=== PATIENT | female | born 1960 | race Hispanic/Latino ===

== ENCOUNTER 2021-01-26 17:10 | Emergency (ER) | payer SELFPAY ==
[2021-01-26] MEDS ORDERED: NA CHLORIDE 0.9% 1,000 ML ONE (19:58)
[2021-01-26] MEDS ORDERED: ASPIRIN 81 MG CHEWABLE TABLET ONE (20:14)
--- NOTE | 2021-01-26 20:22 | RAD REPORT ---
EXAM DESCRIPTION: RAD - Chest Single View - 01/26/2021 8:07 pm CLINICAL HISTORY: COUGH, chest pain COMPARISON: None TECHNIQUE: AP portable chest image was obtained 01/26/2021 8:07 pm . FINDINGS: Lung volumes are low. Mild cardiomegaly is present accentuated by shallow inspiration. Columba tral vasculature is mildly prominent. Peripheral interstitial pattern is not clearly edematous. No ma ss or consolidations seen. Trachea is midline. No measurable pleural effusion and no pneumothorax. No acute bony abnormality seen. No acute aortic findings suspected. IMPRESSION: No peripheral mass or consolidation. Mild failure or volume overload findings are present.
[2021-01-26 20:30] LABS: Absolute Lymphocytes (CBC) 3.8 K/uL (0.7-4.9); Basophils % 0.9 % (0-1.3); Hematocrit 42.4 % (36.0-45.0); Lymphocytes % 45.9 % (15.3-44.8); MPV 9.4 fL (7.6-11.3); RBC Red Blood Cell Count 5.36 M/uL (3.86-4.86)
[2021-01-26 20:31] LABS: Protime INR 0.99
[2021-01-26 20:46] LABS: ALT/SGPT 27 U/L (12-78); AST/SGOT 16 U/L (15-37); Albumin 4.1 g/dL (3.4-5.0); Alkaline Phosphatase 83 U/L (45-117); BUN Blood Urea Nitrogen 12 mg/dL (7-18); Bicarbonate 29 mmol/L (21-32); Bilirubin Direct < 0.1 mg/dL (0-0.2); Bilirubin Total 0.4 mg/dL (0.2-1.0); Glucose Level 93 mg/dL (74-106); Magnesium 2.3 mg/dL (1.8-2.4); NT PRO-BNP 42 pg/mL (<125); Potassium 3.8 mmol/L (3.5-5.1); Protein, Total 7.7 g/dL (6.4-8.2); Sodium Level 142 mmol/L (136-145); Troponin (Emerg Dept Use Only) < 0.02 ng/mL (0.0-0.045)
--- NOTE | 2021-01-26 21:00 | ER ---
Nurse's Notes [facility] Name: Vanessa Guerra Age: 60 yrs Sex: Female : 1960 Arrival Date: 01/26/2021 Time: 17:14 Bed 24 Private MD: Diagnosis: Palpitations;Dizziness and giddiness Presentation: 01/26 17:36 Ebola Screen: Patient negative for fever greater than or equal to 101.5 degrees ca1 Fahrenheit, and additional compatible Ebola Virus Disease symptoms Patient denies exposure to infectious person. Patient denies travel to an Ebola-affected area in the 21 days before illness onset. No symptoms or risks identified at this time. Initial Sepsis Screen: Does the patient meet any 2 criteria? No. Patient's initial sepsis screen is negative. Does the patient have a suspected source of infection? No. Patient's initial sepsis screen is negative. Risk Assessment: Do you want to hurt yourself or someone else? Patient reports no desire to harm self or others. Onset of symptoms was January 26, 2021. 17:36 Acuity: CLINT 3 ca1 17:36 Method Of Arrival: Ambulatory ca1 17:36 Chief complaint: Patient states: I feel like was my beating slow and every time I move ca1 and get up I feel dizzy, been about 5 days. Reports SOB and a little chest pain. Coronavirus screen: Client denies travel out of the [place] in the last 14 days. shortness of breath, Client presents with at least one sign or symptom that may indicate coronavirus-19. Standard/surgical mask placed on the client. Provider contacted for isolation considerations. 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 Historical: - Allergies: 17:42 No Known Allergies; ca1 - Home Meds: 17:42 None [Active]; ca1 - PMHx: 17:42 None; ca1 - PSHx: 17:42 None; ca1 - Immunization history:: Flu vaccine is not up to date. - Social history:: Smoking status: Patient denies any tobacco usage or history of. - Family history:: not pertinent. Screenin:30 Abuse screen: Denies threats or abuse. Nutritional screening: No deficits noted. jb4 Tuberculosis screening: No symptoms or risk factors identified. Fall Risk None identified. Assessment: 19:30 General: Appears in no apparent distress. comfortable, Behavior is calm, cooperative, jb4 appropriate for age. Pain: Denies pain. Neuro: Level of Consciousness is awake, alert, obeys commands, Oriented to person, place, time, situation. Cardiovascular: Patient's skin is warm and dry. Rhythm is sinus rhythm. Respiratory: Airway is patent Respiratory effort is even, unlabored, Respiratory pattern is regular, symmetrical. GI: No signs and/or symptoms were reported involving the gastrointestinal system. : No signs and/or symptoms were reported regarding the genitourinary system. EENT: No signs and/or symptoms were reported regarding the EENT system. Derm: Skin is intact, Skin is pink, warm \T\ dry. Musculoskeletal: Circulation, motion, and sensation intact. Range of motion: intact in all extremities. 20:30 Reassessment: Patient appears in no apparent distress at this time. Patient and/or jb4 family updated on plan of care and expected duration. Pain level reassessed. Patient is alert, oriented x 3, equal unlabored respirations, skin warm/dry/pink. 21:30 Reassessment: Patient appears in no apparent distress at this time. Patient and/or jb4 family updated on plan of care and expected duration. Pain level reassessed. Patient is alert, oriented x 3, equal unlabored respirations, skin warm/dry/pink. Vital Signs: 17:36 BP 141 / 79; Pulse 66; Resp 18 S; Temp 97.7(TE); Pulse Ox 98% on R/A; Weight 85.73 kg ca1 (R); Height 5 ft. 0 in. (152.40 cm) (R); Pain 0/10; 20:30 BP 142 / 87; Pulse 59; Resp 16; Pulse Ox 100% on R/A; jb4 21:30 BP 159 / 99; Pulse 58; Resp 16; Pulse Ox 100% on R/A; jb4 17:36 Body Mass Index 36.91 (85.73 kg, 152.40 cm) ca1 ED Course: 17:14 Patient arrived in ED. ds1 17:38 Triage completed. ca1 17:42 Arm band placed on right wrist. ca1 19:19 Richard Roque MD is Attending Physician. shanell 19:30 José Miguel Olvia RN is Primary Nurse. jb4 19:30 Patient has correct armband on for positive identification. hall monitor on. Pulse jb4 ox on. NIBP on. 19:30 Patient maintains SpO2 saturation greater than 95% on room air. jb4 20:18 XRAY Chest (1 view) In Process Unspecified. EDMS 20:59 Gunner Ceja MD is Referral Physician. [facility] 21:45 No provider procedures requiring assistance completed. IV discontinued, intact, jb4 bleeding controlled, No redness/swelling at site. Pressure dressing applied. Administered Medications: Discontinued: NS 0.9% 1000 ml IV at 125 ml/hr continuous 20:00 Drug: NS 0.9% 1000 ml Route: IV; Rate: 125 ml/hr; Site: right antecubital; jb4 21:30 Follow up: Response: No adverse reaction; IV Status: Order to discontinue infusion jb4 20:00 Drug: Aspirin Chewable Tablet 324 mg Route: PO; jb4 20:30 Follow up: Response: No adverse reaction jb4 21:30 Not Given (Hemodynamic Parameters): ToPROL XL 25 mg PO once jb4 Outcome: 20:59 Discharge ordered by . shanell 21:45 Discharged to home ambulatory. jb4 21:45 Condition: stable 21:45 Discharge instructions given to patient, Instructed on discharge instructions, follow up and referral plans. medication usage, Demonstrated understanding of instructions, follow-up care, medications, Prescriptions given X 1. 21:59 Patient left the ED. jb4 Signatures: Dispatcher [employer] EDKY Richard Roque MD MD cha Sanford, Demi ds1 José Miguel Oliva RN RN jb4 Myrna Redman RN RN ca1
--- NOTE | 2021-01-26 21:00 | EDPHYS ---
Physician Documentation [facility] Name: Vanessa Guerra Age: 60 yrs Sex: Female : 1960 Arrival Date: 01/26/2021 Time: 17:14 Bed 24 Private MD: ED Physician Richard Roque HPI: 01/26 20:01 This 60 yrs old Female presents to ER via Ambulatory with complaints of shanell Dizziness, Irregular Pulse. 20:01 The patient presents with dizziness, generalized weakness. Onset: The symptoms/episode shanell began/occurred 2 day(s) ago. Context: occurred at an unknown location. 20:02 The patient presents with a history of irregular heart beat. Context: The symptoms shanell occur without known cause. Duration: The patient or guardian reports multiple episodes, with no pattern. Modifying factors: The symptoms are aggravated by nothing. The symptoms are alleviated by nothing. Modifying factors: The symptoms are alleviated by nothing, the symptoms are aggravated by nothing. Severity of symptoms: At their worst the symptoms were mild in the emergency department the symptoms are unchanged. Historical: - Allergies: 17:42 No Known Allergies; ca1 - Home Meds: 17:42 None [Active]; ca1 - PMHx: 17:42 None; ca1 - PSHx: 17:42 None; ca1 - Immunization history:: Flu vaccine is not up to date. - Social history:: Smoking status: Patient denies any tobacco usage or history of. - Family history:: not pertinent. ROS: 20:02 Constitutional: Negative for fever, chills, and weight loss, Eyes: Negative for injury, shanell pain, redness, and discharge, ENT: Negative for injury, pain, and discharge, Neck: Negative for injury, pain, and swelling, Respiratory: Negative for shortness of breath, cough, wheezing, and pleuritic chest pain, Abdomen/GI: Negative for abdominal pain, nausea, vomiting, diarrhea, and constipation, Back: Negative for injury and pain, : Negative for injury, bleeding, discharge, and swelling, MS/Extremity: Negative for injury and deformity, Skin: Negative for injury, rash, and discoloration, Psych: Negative for depression, anxiety, suicide ideation, homicidal ideation, and hallucinations, Allergy/Immunology: Negative for hives, rash, and allergies, Endocrine: Negative for neck swelling, polydipsia, polyuria, polyphagia, and marked weight changes, Hematologic/Lymphatic: Negative for swollen nodes, abnormal bleeding, and unusual bruising. 20:02 Cardiovascular: Positive for palpitations. Exam: 20:02 Constitutional: This is a well developed, well nourished patient who is awake, alert, shanell and in no acute distress. Head/Face: Normocephalic, atraumatic. Eyes: Pupils equal round and reactive to light, extra-ocular motions intact. Lids and lashes normal. Conjunctiva and sclera are non-icteric and not injected. Cornea within normal limits. Periorbital areas with no swelling, redness, or edema. ENT: Nares patent. No nasal discharge, no septal abnormalities noted. Tympanic membranes are normal and external auditory canals are clear. Oropharynx with no redness, swelling, or masses, exudates, or evidence of obstruction, uvula midline. Mucous membranes moist. Neck: Trachea midline, no thyromegaly or masses palpated, and no cervical lymphadenopathy. Supple, full range of motion without nuchal rigidity, or vertebral point tenderness. No Meningismus. Chest/axilla: Normal chest wall appearance and motion. Nontender with no deformity. No lesions are appreciated. Cardiovascular: Regular rate and rhythm with a normal S1 and S2. No gallops, murmurs, or rubs. Normal PMI, no JVD. No pulse deficits. Respiratory: Lungs have equal breath sounds bilaterally, clear to auscultation and percussion. No rales, rhonchi or wheezes noted. No increased work of breathing, no retractions or nasal flaring. Abdomen/GI: Soft, non-tender, with normal bowel sounds. No distension or tympany. No guarding or rebound. No evidence of tenderness throughout. Back: No spinal tenderness. No costovertebral tenderness. Full range of motion. Skin: Warm, dry with normal turgor. Normal color with no rashes, no lesions, and no evidence of cellulitis. MS/ Extremity: Pulses equal, no cyanosis. Neurovascular intact. Full, normal range of motion. Neuro: Awake and alert, GCS 15, oriented to person, place, time, and situation. Cranial nerves II-XII grossly intact. Motor strength 5/5 in all extremities. Sensory grossly intact. Cerebellar exam normal. Normal gait. Psych: Awake, alert, with orientation to person, place and time. Behavior, mood, and affect are within normal limits. 20:02 Musculoskeletal/extremity: DVT Exam: No signs of deep vein thrombosis. no pain, no swelling, no tenderness, negative Homans' sign noted on exam, no appreciated bluish discoloration, no erythema, no increased warmth. 20:42 ECG was reviewed by the Attending Physician. shanell Vital Signs: 17:36 BP 141 / 79; Pulse 66; Resp 18 S; Temp 97.7(TE); Pulse Ox 98% on R/A; Weight 85.73 kg ca1 (R); Height 5 ft. 0 in. (152.40 cm) (R); Pain 0/10; 20:30 BP 142 / 87; Pulse 59; Resp 16; Pulse Ox 100% on R/A; jb4 21:30 BP 159 / 99; Pulse 58; Resp 16; Pulse Ox 100% on R/A; jb4 17:36 Body Mass Index 36.91 (85.73 kg, 152.40 cm) ca1 MDM: 19:19 Patient medically screened. shanell 20:07 Differential diagnosis: arrythmia, dehydration, stress disorder. Differential shanell diagnosis: cardiac arrhythmia, generalized weakness, hypovolemia, near-syncope. Data reviewed: vital signs, nurses notes, lab test result(s), EKG, radiologic studies, CT scan, plain films. Data interpreted: school bus monitor: rate is 66 beats/min, rhythm is regular, Pulse oximetry: on room air is 95 %. Test interpretation: by ED physician or midlevel provider: ECG, plain radiologic studies. 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 01/26 19:21 Order name: Basic Metabolic Panel; Complete Time: 20:54 shanell 01/26 19:21 Order name: CBC with Diff; Complete Time: 20:40 shanell 01/26 19:21 Order name: LFT's; Complete Time: 20:54 shanell 01/26 19:21 Order name: Magnesium; Complete Time: 20:54 shanell 01/26 19:21 Order name: NT PRO-BNP; Complete Time: 20:54 [facility] 01/26 19:21 Order name: PT-INR; Complete Time: 20:40 [facility] 01/26 17:54 Order name: EKG; Complete Time: 17:55 [facility] 01/26 19:21 Order name: Troponin (emerg Dept Use Only); Complete Time: 20:54 [facility] 01/26 19:21 Order name: XRAY Chest (1 view); Complete Time: 20:40 [facility] 01/26 19:21 Order name: TSH; Complete Time: 20:54 [facility] 01/26 17:54 Order name: EKG - Nurse/Tech; Complete Time: 17:55 [facility] 01/26 19:21 Order name: Cardiac monitoring; Complete Time: 19:31 [facility] 01/26 19:21 Order name: IV Saline Lock; Complete Time: 21:29 [facility] 01/26 19:21 Order name: Labs collected and sent; Complete Time: 21:29 [facility] 01/26 19:21 Order name: O2 Per Protocol; Complete Time: 19:31 [facility] 01/26 19:21 Order name: O2 Sat Monitoring; Complete Time: 19:31 [facility] EC:42 Rate is 63 beats/min. Rhythm is regular. QRS [place] is Normal. AR interval is normal. QRS shanell interval is normal. QT interval is normal. No Q waves. T waves are Normal. No ST changes noted. Clinical impression: NSR w/ Non-specific ST/T Changes and No evidence of ischemia. Interpreted by me. Reviewed by me. Administered Medications: Discontinued: NS 0.9% 1000 ml IV at 125 ml/hr continuous 20:00 Drug: NS 0.9% 1000 ml Route: IV; Rate: 125 ml/hr; Site: right antecubital; jb4 21:30 Follow up: Response: No adverse reaction; IV Status: Order to discontinue infusion jb4 20:00 Drug: Aspirin Chewable Tablet 324 mg Route: PO; jb4 20:30 Follow up: Response: No adverse reaction jb4 21:30 Not Given (Hemodynamic Parameters): ToPROL XL 25 mg PO once jb4 Disposition: 01/26/21 20:59 Discharged to Home. Impression: Palpitations, Dizziness and giddiness. - Condition is Stable. - Discharge Instructions: Dizziness, Palpitations, Aspirin and Your Heart, Palpitations, [id number], Dizziness, [id number]. - Prescriptions for Toprol XL 25 mg Oral Tablet - take 1 tablet by ORAL route once daily; 20 tablet. - Medication Reconciliation Form, Thank You Letter, Antibiotic Education, Prescription Opioid Use form. - Follow up: Private Physician; When: 2 - 3 days; Reason: Recheck today's complaints, Continuance of care, Re-evaluation by your physician. Follow up: Gunner Ceja MD; When: 2 - 3 days; Reason: Recheck today's complaints, Re-evaluation by your physician. - Problem is new. - Symptoms have improved. Signatures: Dispatcher [employer] EDIA Richard Roque MD MD cha Bryson, James RN RN jb4 Myrna Redman RN RN ca1 Corrections: (The following items were deleted from the chart) 20:59 20:59 01/26/2021 20:59 Discharged to Home. Impression: Palpitations; Dizziness and shanell giddiness. Condition is Stable. Forms are Medication Reconciliation Form, Thank You Letter, Antibiotic Education, Prescription Opioid Use. Follow up: Private Physician; When: 2 - 3 days; Reason: Recheck today's complaints, Continuance of care, Re-evaluation by your physician. Problem is new. Symptoms have improved. shanell 21:51 19:21 Urine Dipstick-Ancillary ordered. shanell mckenna 21:59 20:59 01/26/2021 20:59 Discharged to Home. Impression: Palpitations; Dizziness and jb4 giddiness. Condition is Stable. Forms are Medication Reconciliation Form, Thank You Letter, Antibiotic Education, Prescription Opioid Use. Follow up: Private Physician; When: 2 - 3 days; Reason: Recheck today's complaints, Continuance of care, Re-evaluation by your physician. Follow up: Gunner Ceja; When: 2 - 3 days; Reason: Recheck today's complaints, Re-evaluation by your physician. Problem is new. Symptoms have improved. shanell
[2021-01-27 15:32] VITALS: TEMP 97.7
[2021-01-27 15:33] VITALS: O2SAT 100
[2021-01-27 15:35] VITALS: BP 159/99
== END 2021-01-26 21:59 | disposition home or self-care (01) ==
LOC: EDBD 17:10 → ER 17:10
DX: R00.2 Palpitations (principal)
CPT/HCPCS: 36415; 71045; 80048; 80076; 83735; 83880; 84443; 84484; 85025; 85610; 93005; 96360; 99285; J7030